=== PATIENT | female | born 1975 | race Caucasian/White ===

== ENCOUNTER 2022-05-19 10:23 | Outpatient (CLI) | payer BC, SELFPAY ==
[2022-05-19 12:12] LABS: Albumin* 4.4 g/dL (3.3-5.0); Chloride* 103 mmol/L (96-114)
[2022-05-19 12:14] LABS: Potassium* 4.2 mmol/L (3.6-5.1)
[2022-05-19 12:15] LABS: Cholesterol* 163 mg/dL (90-199)
[2022-05-19 12:16] LABS: Alkaline Phosphatase* 59 U/L (40-150); Aspartate Amino Transferase* 24 U/L (12-35); Bilirubin Total* 0.9 mg/dL (0.1-1.5); Blood Urea Nitrogen* 11 mg/dL (5-24); Carbon Dioxide* 27 mmol/L (20-32); Creatinine* 0.9 mg/dL (0.5-1.5); Estimated Glomerular Filt Rate 80 ml/min; Total Protein* 6.9 g/dL (6.0-8.3)
[2022-05-19 12:17] LABS: Alanine Aminotransferase* 17 U/L (4-35); Glucose* 92 mg/dL (60-115); HDL Cholesterol* 75 mg/dL (>=50); LDL Cholesterol Calculated 76 mg/dL (<100); Sodium* 138 mmol/L (135-149); Triglycerides* 60 mg/dL (40-149)
[2022-05-19 12:42] LABS: Vitamin D 25 Hydroxy* 42 ng/mL (30-80)
[2022-05-19 13:05] LABS: Vitamin B12* 296 pg/mL (243-894)
== END 2022-05-19 10:24 | disposition home or self-care (01) ==
PROVIDERS: PCP Physician Assistant Medical; Visit Provider Physician Assistant Medical
DX: Z00.00 Encounter for general adult medical examination without abnormal findings (principal); R53.83 Other fatigue; R63.5 Abnormal weight gain; Z13.6 Encounter for screening for cardiovascular disorders
CPT/HCPCS: 80053; 80061; 82306; 82607; 84443

== ENCOUNTER 2022-07-04 12:40 | Outpatient (CLI) | payer BC, SELFPAY | END 2022-07-04 12:41 | disposition home or self-care (01) | LOC: OP CLINIC 12:41 | PROVIDERS: PCP Physician Assistant Medical; Visit Provider Surgery | DX: Z12.11 Encounter for screening for malignant neoplasm of colon (principal); K57.30 Diverticulosis of large intestine without perforation or abscess without bleeding | CPT/HCPCS: 45378; J2250; J3010 ==

== ENCOUNTER 2023-09-27 15:43 | Outpatient (CLI) | payer OTHER, SELFPAY | END 2023-09-27 15:44 | disposition home or self-care (01) | LOC: FRMREF 15:44 | PROVIDERS: PCP Physician Assistant Medical; Visit Provider Physician Assistant Medical | DX: Z00.00 Encounter for general adult medical examination without abnormal findings (principal); R63.5 Abnormal weight gain; G89.29 Other chronic pain; Z13.29 Encounter for screening for other suspected endocrine disorder | CPT/HCPCS: 84443 ==

== ENCOUNTER 2023-10-04 15:31 | Outpatient (CLI) | payer OTHER, SELFPAY ==
--- NOTE | 2023-10-04 16:00 | CT_ITS ---
Patient: ELIZA PETERSON Facility:?[facility]IS Patient ID:?[id number] Site Patient ID:?[id number]. Site :?[id number] Study:?CT-Abdomen/Pelvis W/ISOVUE 370 84CC-10/04/2023 4:04:59 PM Ordering Physician:DEJAH Final Report: INDICATION: Abdominal pain. COMPARISON: None. TECHNIQUE: CT abdomen and pelvis with and without contrast; coronal and sagittal reformats. FINDINGS: The lung bases are clear. No abnormal intra pulmonary nodular densities. No evidence of pleural effusion or chest wall pathology. Normal-sized cardiac silhouette with opening pericardial effusion. No focal hepatic or splenic pathology. No pancreatic pathology. Gallbladder is unremarkable. No adrenal pathology. No kidney stones or obstructive uropathy. Normal appendix. No retroperitoneal lymphadenopathy. No evidence of abdominal pelvic ascites. A 2.4 x 2.2 cm fat containing umbilical hernia. IMPRESSION: 1. Small fat containing umbilical hernia. 2. Normal appendix. 3. No kidney stones or obstructive uropathy. 4. Negative CT abdomen and pelvis with intravenous contrast. Please note that all CT scans at this facility use dose modulation, iterative reconstruction, and/or weight-based dosing when appropriate to reduce radiation dose to as low as reasonably achievable. Dictated by Lc Brizuela MD @ 10/05/2023 8:45:22 AM Signed by:?Lc Brizuela MD @10/05/2023 8:45:22 AM (Electronic Signature)
== END 2023-10-04 15:32 | disposition home or self-care (01) ==
LOC: CT 15:32
PROVIDERS: PCP Physician Assistant Medical; Visit Provider Physician Assistant Medical
DX: R10.9 Unspecified abdominal pain (principal); K42.9 Umbilical hernia without obstruction or gangrene; G89.29 Other chronic pain
CPT/HCPCS: 74177; Q9967